=== PATIENT | male | born 1940 | race Caucasian/White ===

== ENCOUNTER 2017-01-16 09:00 | Outpatient (RCR) | payer MEDICARE, BC ==
--- NOTE | 2017-01-01 09:47 | PT INITIAL EVALUATION ---
MEDICAL DIAGNOSIS: Cerebrovascular infarction TREATMENT DIAGNOSIS: same, altered gait and balance DATE OF ONSET: 01/01/16 SUBJECTIVE: Daryl Galeana presents to physical therapy with complaints of vertigo , decreased balance, and altered gait following a cerebrovascular accident approximately one month ago. He states that his B UE's and B LE's were not affected by the stroke, however, he reports that his vision and speech were affected by the stroke. He reports that he can't see anything in his peripheral vision on the R side. He states that driving has been more difficult since the stroke due to that vision loss. Furthermore, he states that he has been having more vertigo and repeated falls since the stroke. He states that he feels like his eyes spin to the R when he is experiencing his vertigo like symptoms. He states that the vertigo becomes worse if he looks up or looks down or moves quickly. He states that if he falls or veers it is always to the R since the stroke. He states that he is moving slower but can perform all his daily tasks that he could do before the stroke occurred. He denies any pain. He states that he will be in [place] for 4 more weeks and then will head back to [place] to his home. REHAB PROBLEM LIST: Decreased Strength Decreased Endurance Decreased Balance Decreased Function Decreased Mobility Decreased Gait PREVIOUS MEDICAL HISTORY: See EMR OCCUPATION: Retired OBJECTIVE: ROM: B UE and B LEs: WNL's with normal end feels Strength: B UE: shoulder, elbow, wrist: 4+/5. B LE: hip, knee, ankle motions: 4+ /5. Special Tests: (-) OCULOMOTOR/VESTIBULAR TESTING: Spontaneous Nystagmus: Absent VOR Head Thrust (horizontal canal function): R: Negative, L: Negative Gaze- Evoked Nystagmus with fixation present:Absent VOR Head Thrust (posterior canal function): R: Negative, L: Positive Posterior Horizontal Head-Shaking Nystagmus ( - ) Gaze-Evoked Nystagmus with fixation suppressed: absent Smooth Pursuit Saccades VOR Cancellation: Normal POSITIONING TEST: Left Hallpike + Right Hallpike - Roll Test + Mobility: Independent Gait: Dynamic Gait Index: 14/24; he had difficulties with the following tasks: gait with vertical or horizontal head turns, gait speed, stepping over or around obstacles, and utilizing stairs. He also continued to veer to the R during the testing, however, he did not have a LOB or encounter/hit an object on his R side. Balance: Firm surface, eyes opened, normal base of support: >30 seconds, firm surface, eyes closed, normal base of support: 15 seconds. Firm surface, eyes closed, decreased base of support: 10 seconds. Compliant surface, eyes opened, normal base of support: >30 seconds. Compliant surface, eyes closed, normal base of support: 10 seconds. Compliant surface, eyes closed, decreased base of support: 5 seconds. Tandem gait, firm surface, eyes opened: 5 seconds Other Objective Findings: ASSESSMENT: Daryl will benefit from skilled physical therapy addressing the listed impairments to improve function and QOL. Short Term Goals 1 week: Pt will abolish vertigo type symptoms with looking down, looking up, and turning his head to the L or R to improve function and QOL. 4 weeks: Pt will be independent on his balance program to improve function and QOL. 4 weeks: Pt will improve dynamic gait index from baseline to 20/24 or greater to improve function, decrease fall risk, and improve QOL. Patient's Goals improve balance and vertigo and reduce falls PLAN: Patient to be seen for Strengthening/condition Spinal Stabilization Work Hardening/Cond Stretching Neuromuscular Re-ed Closed Chain Program Gait Trg/Balance Trg Home Exercise Program Therapeutic Activities 2x/Week for 4 Weeks If you have any questions, comments, or concerns about this report or plan, please contact me at . Thank you, Zuhair Wilson, PT, DPT [facility]
--- NOTE | 2017-01-16 10:22 | PT PLAN OF CARE ---
Physician: JORGE García Patient is being seen: 2x/week Therapist: Zuhair Wilson, PT, DPT Medical Diagnosis: Cerebrovascular infarction Treatment Diagnosis: same, altered gait and balance Date of Onset: 01/01/16 Date of Initial Evaluation: 12/31/16 Date patient was last seen: 01/16/17 Number of treatments: 5 Number of cancellations/No shows: 1 INTERVENTIONS: Strengthening/condition Spinal Stabilization Work Hardening/Cond Stretching Neuromuscular Re-ed Closed Chain Program Gait Trg/Balance Trg Home Exercise Program Therapeutic Activities GOALS: 1 week: Pt will abolish vertigo type symptoms with looking down, looking up, and turning his head to the L or R to improve function and QOL. MET 4 weeks: Pt will be independent on his balance program to improve function and QOL. MET 4 weeks: Pt will improve dynamic gait index from baseline to 20/24 or greater to improve function, decrease fall risk, and improve QOL. MET PATIENT'S GOAL: improve balance and vertigo and reduce falls: MET Status of Patient's Goals: MET Patient Compliance: Good Prognosis: Good Reasons for continuing therapy: This is a discharge note for Daryl Galeana. He reports that he is doing well and has not had any dizzy spells or LOB. Instructed Daryl to get night lights for walking in the dark to use the restroom at night. Also when washing hair in the shower to back up against the shower wall. Reviewed vestibular exercise program with Daryl with emphasis that he use a corner of his home and a chair to prevent any falls because he needs to work on EC exercises. He reports he understood this and way able to demonstrate safely. He had demonstrated the following improvements: clear anterior, posterior, and horizontal canals and improved balance strategies along with improved gait mechanics. He has met all of his goals and will be returning to his home in [place]. As a result, he will be discharged from formal PT to [facility]. Posture: ROM: B UE and B LEs: WNL's with normal end feels Strength: B UE: shoulder, elbow, wrist: 4+/5. B LE: hip, knee, ankle motions: 4+ /5. Special Tests: (-) OCULOMOTOR/VESTIBULAR TESTING: Spontaneous Nystagmus: Absent VOR Head Thrust (horizontal canal function): R: Negative, L: Negative Gaze- Evoked Nystagmus with fixation present:Absent VOR Head Thrust (posterior canal function): R: Negative, L: negative Posterior Horizontal Head-Shaking Nystagmus ( - ) Gaze-Evoked Nystagmus with fixation suppressed: absent Smooth Pursuit Saccades VOR Cancellation: Normal POSITIONING TEST: Left Hallpike - Right Hallpike - Roll Test - Mobility: Independent If you have any questions, please contact me at [phone]. Thank you, Zuhair Wilson, PT, DPT [facility]
== END 2017-01-16 18:00 | disposition home or self-care (01) ==
LOC: PT 09:00
PROVIDERS: ATTEND Nurse Practitioner Psychiatric/Mental Health
DX: I69.328 Other speech and language deficits following cerebral infarction (principal); I69.312 Visuospatial deficit and spatial neglect following cerebral infarction; R29.6 Repeated falls; R42 Dizziness and giddiness
CPT/HCPCS: 97162